=== PATIENT | male | born 1980 ===

== ENCOUNTER 2019-02-12 10:17 | Emergency (ER) | payer OTHER ==
[2019-02-12 10:22] VITALS: BP 143/100
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
[2019-02-12] MEDS ORDERED: BOOSTRIX IM ONE (11:48)
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
== END 2019-02-12 12:11 | disposition home or self-care (01) ==
LOC: ED 10:17
DX: S21.93XA Puncture wound without foreign body of unspecified part of thorax, initial encounter (principal); W22.8XXA Striking against or struck by other objects, initial encounter; Y93.89 Activity, other specified; Y92.89 Other specified places as the place of occurrence of the external cause; Y99.8 Other external cause status
CPT/HCPCS: 71046; 90471; 90715